=== PATIENT | male | born 1940 ===

== ENCOUNTER → 2018-10-31 15:43 | Outpatient (REF) | payer MEDICARE, OTHER, SELFPAY | LOC: LAB 15:43 | PROVIDERS: Visit Provider Physician Assistant | DX: L82.1 Other seborrheic keratosis (principal); L02.821 Furuncle of head [any part, except face]; Z48.02 Encounter for removal of sutures; Z08 Encounter for follow-up examination after completed treatment for malignant neoplasm; Z85.828 Personal history of other malignant neoplasm of skin | CPT/HCPCS: 87070; 87075; 87102; 87205 ==